=== PATIENT | female | born 1980 | race Caucasian/White ===

== ENCOUNTER → 2018-08-27 | Outpatient (CLI) | payer OTHER ==
[~2018-08-27] MED LIST: AMOX875 PO; BIRTH CONTROL; HYDPAM50 PO; METF500C PO; OXYACE5T PO; ROXICODONE5 MG PO; SERT100 PO; SPIR25 PO; [UNRECOGNIZED DRUG - REMARK]
[2018-08-28 15:07] LABS: HPV 16 Negative (Negative); HPV 18 Negative (Negative); HPV OTHER HR TYPES Negative (Negative)
== END | disposition home or self-care (01) ==
LOC: LAB 11:41 → LAB SHORT 11:41
PROVIDERS: Nurse Practitioner Family
DX: Z12.4 Encounter for screening for malignant neoplasm of cervix (principal); R87.4 Abnormal immunological findings in specimens from female genital organs
CPT/HCPCS: 87624; G0145

== ENCOUNTER → 2021-07-14 | Outpatient (CLI) | payer OTHER | LOC: LAB SHORT 14:30 | PROVIDERS: Physician Assistant Medical | DX: Z12.4 Encounter for screening for malignant neoplasm of cervix (principal) | CPT/HCPCS: G0145 ==

== ENCOUNTER → 2025-05-05 | Outpatient (CLI) | payer OTHER ==
[2025-05-05 16:19] LABS: BASOPHILS ABSOLUTE AUTO 0.03 K/mm3 (0.00-0.23); BASOPHILS PERCENT AUTO 1 % (0-2); EOSINOPHILS ABSOLUTE AUTO 0.27 K/mm3 (0.00-0.68); EOSINOPHILS PERCENT AUTO 4 % (0-6); Hematocrit 37.8 % (33.0-51.0); Hemoglobin 12.0 g/dL (11.5-16.0); IMMATURE GRAN ABSOLUTE AUTO 0.02 K/mm3 (0.00-0.10); IMMATURE GRAN PERCENT AUTO 0 % (0-1); LYMPHOCYTES ABSOLUTE AUTO 0.96 K/mm3 (0.84-5.20); LYMPHOCYTES PERCENT AUTO 16 % (21-46); MONOCYTES ABSOLUTE AUTO 0.54 K/mm3 (0.16-1.47); MONOCYTES PERCENT AUTO 9 % (4-13); Mean Corpuscular HGB Conc 31.7 g/dL (31.5-36.5); Mean Corpuscular Volume 81 fL (80-100); NEUTROPHILS ABSOLUTE AUTO 4.35 K/mm3 (1.96-9.15); NEUTROPHILS PERCENT AUTO 70 % (41-73); NRBC ABSOLUTE 0.00 K/mm3 (0.00-0.02); NRBC Auto 0.0 /100 WBC (0.0-0.2); Platelet Count 264 K/mm3 (150-400); RDW Coefficient Variation 15.0 % (11.7-14.2); RDW Standard Deviation 43.9 fL (35.1-46.3)
[2025-05-05 18:05] LABS: Alanine Aminotransfer (ALT/SGP 25 U/L (12-78); Albumin, Blood 3.7 g/dL (3.4-5.0); Albumin/Globulin Ratio 1.1 (0.8-1.8); Anion Gap 6 mmol/L (3-11); Aspartate Aminotrans (AST/SGOT 15 U/L (12-37); Bilirubin, Total 0.3 mg/dL (0.1-1.0); Blood Urea Nitrogen 21 mg/dL (8-24); CHOL/HDL RATIO 2.8; CO2, Blood 25 mmol/L (21-32); Calcium, Blood 8.4 mg/dL (8.5-10.1); Chloride, Blood 108 mmol/L (98-108); Cholesterol 147 mg/dL (50-200); Creatinine, Blood 0.79 mg/dL (0.40-1.00); Globulin, Blood 3.3 g/dL (2.2-4.0); Glucose, Blood 84 mg/dL (70-99); HDL Cholesterol 53 mg/dL (>39); LDL/HDL RATIO 1.6; Low Density Lipoprotein Chol 82 mg/dL (0-110); Potassium, Blood 4.2 mmol/L (3.5-5.5); Sodium, Blood 135 mmol/L (136-145); Thyroid Stimulating Hormone 1.040 uIU/mL (0.360-4.800); Total Protein, Blood 7.0 g/dL (6.4-8.2); Triglycerides 59 mg/dL (30-160); Very Low Density Lipoprot Chol 11 mg/dL (6-32)
== END ==
LOC: LAB SHORT 09:00 → LAB 09:00
PROVIDERS: Student in an Organized Health Care Education/Training Program
DX: E28.2 Polycystic ovarian syndrome (principal); G47.33 Obstructive sleep apnea (adult) (pediatric); J45.20 Mild intermittent asthma, uncomplicated; N32.81 Overactive bladder
CPT/HCPCS: 80053; 80061; 83036; 84443; 85025